=== PATIENT | female | born 2000 | race Two or more races ===

== ENCOUNTER 2020-01-12 15:27 | Outpatient (CLI) | payer OTHER ==
--- NOTE | 2020-01-12 17:08 | MRI Report ---
PROCEDURE: Knee LT W/O INDICATIONS: PAIN IN LT KNEE TECHNIQUE: Noncontrast sagittal PD fast spin echo and T2 fast spin echo with fat saturation, sagittal 3-D gradie nt sequence with fat saturation; coronal T1 spin echo and PD fast spin echo with fat saturation, and axial PD fast spin echo with fat saturation through the knee. COMPARISON: None. FINDINGS: Image quality: Excellent. Menisci: The medial and lateral menisci demonstrate normal morphology and internal signal. The meni scal root ligaments appear intact. Cruciate ligaments: The anterior and posterior cruciate ligaments appear intact. Medial structures: The medial collateral ligament appears intact. Visualized portions of the pes ans erinus tendons appear normal. No abnormal bursal fluid. Lateral structures: The lateral collateral ligament, long and short heads of the biceps femoris tend on appear intact. The popliteus tendon appears normal. Iliotibial band appears normal. Anterior structures: The quadriceps and patellar tendons appear intact. Patellar alignment is mahendra l. No femoral trochlear dysplasia or ventral trochlear prominence. No edema in the infrapatellar fa t pad. Bones and cartilage: No bone marrow contusions or fractures. The cartilage of the medial and latera l femorotibial compartments, as well as the patellofemoral compartment, appears normal in thickness. Joint space: There is physiologic knee joint fluid. Trace Schofield?s cyst. Normal appearing synovial p licae are incidentally noted. IMPRESSION: 1. No internal derangement. 2. Trace Schofield's cyst. Reviewed by: Rossi Sanderson MD on 01/12/2020 5:07 PM PDT Approved by: Rossi Sanderson MD on 01/12/2020 5:07 PM PDT Station ID: [id number]
== END 2020-01-12 15:28 | disposition home or self-care (01) ==
LOC: DI 15:27
PROVIDERS: ATTEND Physician Assistant
DX: M25.562 Pain in left knee (principal); M71.22 Synovial cyst of popliteal space [Baker], left knee